=== PATIENT | male | born 1995 | race Caucasian/White ===

== ENCOUNTER 2025-04-23 05:21 | Emergency (ER) | payer BC, SELFPAY ==
[2025-04-23 05:22] VITALS: BP 140/91; PULSE 104; RESP 18; TEMP 36.9; O2SAT 95; BMI 36.4
--- NOTE | 2025-04-23 05:43 | XR_ITS ---
EXAMINATION: PA lateral chest 2 views TECHNIQUE: Upright PA and lateral chest 2 views Date and time: April 23, 2025, 0546 hours, comparison March 27, 2023 INDICATION: Coughing and wheezing beginning 1 week ago. FINDINGS: Normal heart size No pneumonia or pulmonary edema. The osseous structures are intact IMPRESSION: No active disease
--- NOTE | 2025-04-23 05:44 | EDRME_ITS ---
Rapid Medical Screening Exam [facility] Arrival date/time: 04/23/25 05:21 30M with history of asthma presents to ED with 1 week of cough, intermittent wheezing, and BHATIA. Chief Complaint: Flu Like Symptoms Vital signs: Vital Signs Temperature 98.4 F 04/23/25 05:22 Pulse Rate 104 H 04/23/25 05:22 Respiratory Rate 18 04/23/25 05:22 Blood Pressure 140/91 H 04/23/25 05:22 Pulse Oximetry (%) 95 04/23/25 05:22 Oxygen Delivery Method Room Air 04/23/25 05:22
[2025-04-23] MEDS: DEXAMETHASONE SOD PHOS INJ 10 MG/ML VIAL PO (05:55)
[2025-04-23 06:36] LABS: Basophils # (Auto) 0.1 Thou/mm3 (0.0-0.2); Basophils % (Auto) 1 % (0-2.5); Eosinophils # (Auto) 0.2 Thou/mm3 (0.0-0.5); Eosinophils % (Auto) 4 % (0-10); Hematocrit 45.3 % (41.0-53.0); Hemoglobin 15.0 g/dL (13.5-16.0); Immature Granulocytes Auto 0.03 Thou/mm3 (0.00-0.00); Lymphocytes # (Auto) 1.7 Thou/mm3 (1.0-4.8); Lymphocytes % (Auto) 29 % (10-50); Mean Corpuscular HGB Conc 33.1 g/dl (31.0-37.0); Mean Corpuscular Hemoglobin 28.4 pg (25.0-35.0); Mean Corpuscular Volume 86 fL (80-100); Monocytes # (Auto) 0.6 Thou/mm3 (0.0-0.8); Monocytes % (Auto) 10 % (0-12); Neutrophils # (Auto) 3.3 Thou/mm3 (1.8-7.7); Neutrophils % (Auto) 56 % (37-80); Nucleated Red Blood Cell # 0.00 Thou/mm3 (0.00-0.00); Nucleated Red Blood Cell % 0 /100 WBC (0); Platelet Count 204 Thou/mm3 (140-440); RDW Standard Deviation 37.8 fL (35.1-43.9); Red Blood Count 5.28 Miln/mm3 (4.50-5.90); White Blood Count 5.8 Thou/mm3 (3.8-10.6)
[2025-04-23 07:08] LABS: Alanine Aminotransferase 30 U/L (10-49); Albumin, Serum 4.6 gm/dL (3.5-5.0); Albumin/Globulin Ratio 1.6 (1.2-2.2); Alkaline Phosphatase 43 U/L (46-116); Anion Gap 9 (7-16); Aspartate Amino Transferase 28 U/L (0-34); BUN/Creatinine Ratio 7 Ratio (12-20); Bilirubin,Total 0.4 mg/dL (0.3-1.2); Blood Urea Nitrogen 7 mg/dL (9-23); Calcium 9.3 mg/dL (8.3-10.6); Calcium (Corrected) 9.3 mg/dL (8.5-10.1); Carbon Dioxide 29.8 mMol/L (20.0-31.0); Chloride 101 mMol/L (98-107); Creatinine (Component) 1.0 mg/dL (0.6-1.3); Estimated Creatinine Clearance 147.0 mL/min (>60); Globulin 2.8 gm/dL (2.3-3.5); Glucose 139 mg/dL (74-106); Osmolality,Calculated 279 (275-295); Potassium 4.2 mMol/L (3.4-5.1); Procalcitonin 0.05 ng/ml (0.0-0.49); Sodium 140 mMol/L (136-145); Total Protein 7.4 gm/dL (5.7-8.2); eGFR > 60 See Note
--- NOTE | 2025-04-23 07:22 | EDNOTE_ITS ---
Upper Respiratory Inf. RME/HPI General Chief Complaint: Flu Like Symptoms Stated Complaint: COUGH CONGESTION FEVER Time Seen by Provider: 04/23/25 07:21 Arrival date/time: 04/23/25 05:21 30M with history of asthma presents to ED with 1 week of cough, intermittent wheezing, and BHATIA. Limitations: no limitations RME / HPI RME / HPI Narrative: 04/23/25 05:21 30M with history of asthma presents to ED with 1 week of cough, intermittent wheezing, and BHATIA. Related Data Previous Rx's ?Medication ?Instructions ?Recorded ciprofloxacin HCl 500 mg tablet 500 mg PO BID #14 tabs 01/26/18 metronidazole 500 mg tablet 500 mg PO BID #14 tabs omeprazole 20 mg capsule,delayed 20 mg PO QDAY #30 cap s 01/26/18 release promethazine 25 mg tablet 25 mg PO Q6H PRN nausea and 01/26/18 vomiting #14 tabs erythromycin 5 mg/gram (0.5 %) eye 0.5 inch ophthalmic (eye) QID #3.5 12/05/23 ointment grams benzonatate 100 mg capsule 100 mg PO TID #14 caps 04/09 12/01 prednisone 10 mg tablet 30 mg (3 x 10 mg) PO BID 3 d ays 04/23/25 #18 tabs Allergies Allergy/AdvReac Type Severity Reaction Status Date / Time No Known Allergies Allergy Verified 04/23/25 05:24 Review of Systems Review of Systems Systems Reviewed: All systems reviewed, normal except as documented Constitutional Constitutional: Reports system reviewed and no additional complaints, except as documented, Denies fatigue, Denies fever(s) and Reports headache(s) Eyes Eyes: Reports system reviewed and no additional complaints, except as documented and Denies blurry vision ENT Ears, Nose, Mouth, and Throat: Reports system reviewed and no additional complaints, except as documented, Reports headache(s), Reports nasal congestion, Reports nasal discharge and Reports sore throat Cardiovascular Cardiovascular: Reports system reviewed and no additional complaints, except as documented, Denies chest pain and Denies dyspnea Respiratory Respiratory: Reports system reviewed and no additional complaints, except as documented, Reports chest congestion, Reports cough and Denies dyspnea Gastrointestinal Gastrointestinal: Reports system reviewed and no additional complaints, except as documented and Denies abdominal pain Musculoskeletal Musculoskeletal: Reports system reviewed and no additional complaints, except as documented, Denies abnormal gait, Denies numbness, Denies stiffness and Denies tingling Integumentary/Breasts Skin/Breast: Reports system reviewed and no additional complaints, except as documented and Denies rash Neurologic Neurologic: Reports system reviewed and no additional complaints, except as documented, Reports as per HPI, Denies abnormal gait, Reports headache(s), Denies numbness and Denies tingling Psychiatric Psychiatric: Reports system reviewed and no additional complaints, except as documented and Denies anxiety Endocrine Endocrine: Denies fatigue Past Medical History Past Medical History CARDIAC: Negative Cardiac Disorders or Congestive Heart Failure RESPIRATORY: Positive Asthma and Sleep Apnea; Negative Chronic Obstructive Pulmonary Disease (COPD) GENITOURINARY: Negative Renal Disease ENDOCRINE: Negative Diabetes Mellitus Type 1 or Diabetes Mellitus Type 2 HEMATOLOGIC: Negative Sickle Cell Disease Social History SMOKING STATUS: Never smoker ED Exam General Limitations: Present no limitations General appearance: Present alert and in no apparent distress Head Head exam: Present atraumatic Eye Eye exam: Present normal appearance, PERRL and EOMI ENT ENT exam: Present normal exam, normal oropharynx and mucous membranes moist Neck Neck exam: Present normal inspection, full ROM and trachea midline Chest Chest inspection: Present normal inspection and symmetric chest wall rise Respiratory Respiratory exam: Present normal lung sounds bilaterally Cardiovascular Cardiovascular exam: Present regular rate, normal rhythm and normal heart sounds Abdominal Exam Abdominal exam: Present soft and normal bowel sounds Extremities Exam Extremities exam: Present normal inspection and full ROM Back Exam Back exam: Present normal inspection and full ROM Neurological Exam Neurological exam: Present alert, oriented X3 and CN II-XII intact Psychiatric Psychiatric exam: Present normal affect and normal mood Skin Skin exam: Present warm, dry, intact and normal color Course Quality Measures none Orders Category Date Time Status Bedside COVID-19 Antigen Test NOW Care 04/23/25 05:22 Completed XR chest 2V Stat Exams 04/23/25 05:43 Completed CBC Stat Lab 04/23/25 06:21 Completed CMP [Comprehensive Metabolic Panel] Stat Lab 04/23/25 06:21 Completed Procalcitonin Stat Lab 04/23/25 06:21 Completed Dexamethasone Inj [Decadron Inj] Med 04/23/25 05:43 Discontinued 10 mg PO X1 ONE Vital Signs Vital signs: Vital Signs Temperature 98.4 F 04/23/25 05:22 Pulse Rate 104 H 04/23/25 05:22 Respiratory Rate 18 04/23/25 05:22 Blood Pressure 140/91 H 04/23/25 05:22 Pulse Oximetry (%) 95 04/23/25 05:22 Oxygen Delivery Method Room Air 04/23/25 05:22 O2 saturation 95% on room air with normal limits Upper Respiratory Infection MDM Narrative MDM Narrative:: 30M with history of asthma presents to ED with 1 week of cough, intermittent wheezing, and BHATIA. On exam patient well-appearing patient does not appear toxic distress Lab work imaging obtained by my colleague I reviewed the patient's lab work and imaging no acute emergent findings noted Symptoms consistent with URI Patient discharged home in no distress to follow-up with primary care doctor in the next 24 to 48 hours and for any worsening symptoms to return to the ER immediately Patient data External records reviewed:: [facility] previous records Clinical information provided by:: parent Social determinants that could affect healthcare access:: none Patient has the following chronic illnesses:: None How is presenting disease/condition affected by chronic disease/condition?: no chronic disease Evaluation data The following diagnostics were reviewed and interpreted by me:: lab results and radiology exam(s) Lab and/or radiology exams considered but not ordered:: Labs radiology obtained Interpretation Summary: Reviewed by me Medications / Prescriptions Medications or Prescriptions considered but not ordered:: Given Medication administrations:: Medication Administration History Discontinued Medications Dexamethasone Sodium Phosphate (Dexamethasone Sod Phos Inj 10 Mg/Ml Vial) 10 mg PO X1 ONE Stop: 04/23/25 05:44 Last Admin: 04/23/25 05:55 Dose: 10 mg Documented By: BURKE Comments: given po Given Consultations Consultation(s) initiated? (list below): No Diagnosis Upper Respiratory Differential Diagnosis: upper respiratory infection, otitis media, viral infection, bronchitis and influenza Most likely diagnosis given after review of the tests above:: URI Admission Indicated Admission indicated?: not indicated Admission Request Was there a request for admission?: No Disposition Plan Disposition Plan: Discharge Discharge Attestation Discharge Attestation: The patient and all family members were given an opportunity to ask questions and understood the discharge instructions. Discharge instructions specifically effects, indications for sooner follow up or return to the emergency department, and the expected course of current diagnosis. Patient condition: Stable Discharge Plan Plan Patient Disposition: HOME (Self Care) Discharge Disposition comment: Stable Prescriptions/Referrals Prescriptions/Med Rec: New prednisone 10 mg tablet 30 mg PO BID 3 Days Qty: 18 0RF benzonatate 100 mg capsule 100 mg PO TID Qty: 14 0RF No Action metronidazole 500 mg tablet 500 mg PO BID Qty: 14 0RF ciprofloxacin HCl 500 mg tablet 500 mg PO BID Qty: 14 0RF promethazine 25 mg tablet 25 mg PO Q6H PRN (Reason: nausea and vomiting) Qty: 14 0RF omeprazole 20 mg capsule,delayed release(DR/EC) 20 mg PO QDAY Qty: 30 0RF erythromycin 5 mg/gram (0.5 %) ointment 0.5 inch ophthalmic (eye) QID Qty: 3.5 0RF Referrals: No Primary/Family,Physician [Primary Care Provider] - 04/24/25 Problem List Clinical Impression: Upper respiratory infection Patient/Caregiver Discharge Instructions Education Materials: ED URI, Viral, No Abx (Adult) Additional Instructions: Please follow up with your primary care doctor in the next 24-48hrs for any worsening symptoms return here immediately Print Language: Occitan Stand Alone Forms: Jasmyn Award Info., Work/School Release, Patient Portal Info Letter PA/[employer]PERVISOR Supervising Physician PA/[employer] SUPER[employer]OR Supervising Physician: Dr. Kaur
== END 2025-04-23 07:38 | disposition home or self-care (01) ==
PROVIDERS: Physician Assistant; Emergency Provider Emergency Medicine
DX: J06.9 Acute upper respiratory infection, unspecified (principal); J45.909 Unspecified asthma, uncomplicated; Z79.52 Long term (current) use of systemic steroids
CPT/HCPCS: 36415; 71046; 80053; 84145; 85025; 87811; 99283; J1100